=== PATIENT | male | born 1985 | race Caucasian/White ===

== ENCOUNTER 2016-10-21 19:56 | Emergency (ER) | payer MEDICAID ==
[2016-10-21 21:50] VITALS: BP 138/75
== END 2016-10-21 21:50 | disposition home or self-care (01) ==
LOC: ED 19:56
DX: M10.072 Idiopathic gout, left ankle and foot (principal); H61.21 Impacted cerumen, right ear

== ENCOUNTER 2016-11-14 21:07 | Emergency (ER) | payer MEDICAID ==
[2016-11-14 22:15] VITALS: BP 128/81
== END 2016-11-14 22:15 | disposition home or self-care (01) ==
LOC: ED 21:07
DX: M10.072 Idiopathic gout, left ankle and foot (principal)
CPT/HCPCS: J1885

== ENCOUNTER 2017-04-13 10:51 | Emergency (ER) | payer OTHER ==
[~2017-04-13] VITALS: Ht 167.6 cm; Wt 103.4 kg
[2017-04-13 12:41] VITALS: BP 120/71
== END 2017-04-13 12:41 | disposition home or self-care (01) ==
LOC: ED 10:51
DX: S90.122A Contusion of left lesser toe(s) without damage to nail, initial encounter (principal); M10.9 Gout, unspecified; X58.XXXA Exposure to other specified factors, initial encounter; Y93.89 Activity, other specified; Y99.8 Other external cause status; Y92.89 Other specified places as the place of occurrence of the external cause
CPT/HCPCS: 83880; Q0092

== ENCOUNTER 2017-09-28 15:34 | Emergency (ER) | payer OTHER ==
[~2017-09-28] VITALS: Ht 170.2 cm; Wt 104.3 kg
[2017-09-28 15:44] VITALS: Ht 170.2 cm; Wt 104.3 kg
[2017-09-28 17:09] VITALS: BP 136/89
== END 2017-09-28 17:09 | disposition home or self-care (01) ==
LOC: ED 15:34
DX: J02.8 Acute pharyngitis due to other specified organisms (principal)

== ENCOUNTER 2019-02-26 22:35 | Emergency (ER) | payer OTHER ==
[~2019-02-26] VITALS: Ht 167.6 cm; Wt 107.5 kg
[2019-02-26 22:52] VITALS: Ht 167.6 cm; Wt 107.5 kg
[2019-02-27 01:56] VITALS: BP 143/101
== END 2019-02-27 01:56 | disposition home or self-care (01) ==
LOC: ED 22:35
DX: H66.92 Otitis media, unspecified, left ear (principal); M10.9 Gout, unspecified; Z88.8 Allergy status to other drugs, medicaments and biological substances

== ENCOUNTER 2019-05-11 16:36 | Emergency (ER) | payer OTHER ==
[~2019-05-11] VITALS: Ht 167.6 cm; Wt 114.3 kg
[2019-05-11 16:44] VITALS: Ht 167.6 cm; Wt 114.3 kg
[2019-05-11 18:17] VITALS: BP 122/74
== END 2019-05-11 18:17 | disposition home or self-care (01) ==
LOC: ED 16:36
DX: M10.072 Idiopathic gout, left ankle and foot (principal); Z88.6 Allergy status to analgesic agent

== ENCOUNTER 2019-10-16 02:08 | Emergency (ER) | payer OTHER ==
[~2019-10-16] VITALS: Ht 167.6 cm; Wt 113.4 kg
[2019-10-16 02:30] VITALS: Ht 167.6 cm; Wt 113.4 kg
[2019-10-16 03:17] LABS: BASOPHIL % 0.4 % (0-2); PLATELET COUNT 279 x10^3mcL (130-400); RED CELL DISTRIBUTION WIDTH 13.3 % (11.5-14.5)
[2019-10-16 04:18] LABS: CALCIUM 9.1 mg/dL (8.5-10.1); CARBON DIOXIDE 27.7 mmol/L (21-32); CHLORIDE SERUM 105 mmol/L (98-107); CREATININE SERUM 1.2 mg/dL (0.7-1.3); GFR1 > 60 mL/min; GLUCOSE SERUM 138 mg/dL (74-106); SODIUM SERUM 142 mmol/L (136-145)
[2019-10-16 04:22] LABS: ALBUMIN 3.7 g/dL (3.4-5.0); ALKALINE PHOSPHATASE 127 U/L (46-116); ALT/SGPT 39 U/L (16-63); AST/SGOT 11 U/L (15-37); BILIRUBIN TOTAL 0.55 mg/dL (0.20-1.00); HDL CHOLESTEROL 35 mg/dL (40-60); TOTAL PROTEIN, SERUM 7.6 g/dL (6.4-8.2)
[2019-10-16 04:31] LABS: CHOLESTEROL 226 mg/dL (<200); CHOLESTEROL/HDL RATIO 6.5; TRIGLYCERIDES 535 mg/dL (<150)
[2019-10-16 05:03] LABS: microscopic required? NO
[2019-10-16 05:31] VITALS: BP 124/72
[2019-10-16 05:52] LABS: urine erythrocyte NEGATIVE (NEGATIVE)
== END 2019-10-16 05:00 | disposition home or self-care (01) ==
LOC: ED 02:08
PROVIDERS: Specialist
DX: R10.9 Unspecified abdominal pain (principal); E66.9 Obesity, unspecified; Z88.8 Allergy status to other drugs, medicaments and biological substances
CPT/HCPCS: J2405; J3010; J7030